=== PATIENT | female | born 2000 | race African-American/Black ===

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

== ENCOUNTER 2020-01-19 12:22 | Emergency (ER) | payer OTHER, SELFPAY ==
[2020-01-19 12:28] VITALS: BP 136/77; PULSE 116; RESP 12; TEMP 37; O2SAT 100
--- NOTE | 2020-01-19 12:38 | ED.FEMALEGU ---
HPI - Female Genitourinary General Chief complaint: DERRICK HELPER Stated complaint: vaginal bleeding Time Seen by Provider: 01/19/20 12:42 Source: patient and RN notes reviewed Mode of arrival: ambulatory Limitations: no limitations History of Present Illness HPI Narrative: 19-year-old female presents with concern for vaginal spotting outside of her normal menstrual cycle. Reports her last period stopped on December 31, she began having spotting on January 10. She reports spotting is sporadic and mild. She does not take control, has never taken control. She denies cramping, abdominal pain, fever, abnormal vaginal discharge, concern for STDs, dysuria, frequency, urgency, flank pain, heavy bleeding. Reports she has never had a Pap smear, has never seen a bell clerk, however has an appointment in mid January with a bell clerk. MD elicited complaint: vaginal bleeding Related Data Allergies Allergy/AdvReac Type Severity Reaction Status Date / Time No Known Allergies Allergy Verified 12/02/19 22:29 Review of Systems Review of Systems: Narrative: CONSTITUTIONAL: Denies malaise, chills, sweats, or fever. CARDIOVASCULAR: Denies chest pain, palpitations, or edema. RESPIRATORY: Denies cough or dyspnea. GASTROINTESTINAL: Denies abdominal pain, nausea, vomiting, diarrhea, bloody, or mucous stools. GENITOURINARY: Denies dysuria or hematuria. Reports vaginal spotting SKIN: Denies rash or itching. MUSCULOSKELETAL: Denies myalgia. NEUROLOGIC: Denies numbness, weakness, or headache. PSYCHIATRIC: Denies anxiety or depression. Reports increased stress All systems reviewed & are unremarkable except as noted in HPI and below PMFSH Past Medical History Medical History (Updated 01/19/20 @ 12:58 by Ana Arce NP) Patient denies significant medical history Social History Social History (Updated 12/02/19 @ 22:34 by Wero Rapp DO) Smoking status: Never smoker Comments At time of signature, agree with nursing past medical, surgical, social and family history. There is no relevant family history pertinent to the presenting complaint Exam Narrative: Exam Narrative: GENERAL: Well-appearing, well-nourished, and in no acute distress. HEAD: Normocephalic. EYES: PERRLA, conjunctivae clear. NECK: Supple. No lymphadenopathy CHEST: Clear to auscultation. No respiratory distress. HEART: Regular rate and rhythm. No murmur heard. Normal peripheral pulses. ABDOMEN: Soft, nontender upon palpation, nondistended, normal active bowel sounds, no palpable or pulsatile masses, no guarding. No CVA tenderness SKIN: Warm, dry, no rash. NEURO: Alert and oriented x3. PSYCH: Normal mood and affect Patient refused pelvic exam Course Course Emergency Course: Patient refused pelvic exam. Patient is aware of diagnosis, understands and agrees to treatment plan. Anticipatory guidance given. Patient agrees to follow-up as directed and is aware of reasons to seek care at the emergency department. Portions of this record may have been created with voice recognition software Vital Signs Vital signs: Vital Signs Temperature 98.6 F 01/19/20 12:28 Pulse Rate 116 H 01/19/20 12:28 Respiratory Rate 12 01/19/20 12:28 Blood Pressure 136/77 01/19/20 12:28 Pulse Oximetry 100 01/19/20 12:28 Temperature 98.6 F 01/19/20 12:28 Pulse Rate 116 H 01/19/20 12:28 Respiratory Rate 12 01/19/20 12:28 Blood Pressure 136/77 01/19/20 12:28 Pulse Oximetry 100 01/19/20 12:28 Reviewed. MDM - Female Genitourinary MDM Narrative Medical decision making narrative: Exam findings and UA show no acute concerns or changes; patient is non-toxic appearing and is in no distress. Patient is appropriate for outpatient treatment and follow-up. Differential Diagnosis Differential diagnosis: Likely vaginitis and dysmenorrhea Lab Data Labs: UCG Bedside Result Negative Reference Range: Negative Urine Glucose Neg
== END 2020-01-19 13:03 | disposition home or self-care (01) ==
PROVIDERS: Emergency Provider Nurse Practitioner
DX: N94.6 Dysmenorrhea, unspecified (principal)
CPT/HCPCS: 81003; 81025; 99213; G0463

== ENCOUNTER 2020-03-10 17:25 | Emergency (ER) | payer OTHER, SELFPAY ==
[2020-03-10 17:34] VITALS: BP 122/70; PULSE 89; RESP 16; TEMP 36.8; O2SAT 100
--- NOTE | 2020-03-10 17:44 | ED.FEMALEGU ---
HPI - Female Genitourinary General Chief complaint: Urogenital-Female Stated complaint: POS UTI Time Seen by Provider: 03/10/20 17:37 Source: patient and RN notes reviewed Mode of arrival: ambulatory Limitations: no limitations History of Present Illness HPI Narrative: Patient presents today with a 4-day history of hematuria, urinary frequency with dysuria that started today. Denies abdominal pain, back pain, fever, nausea, vomiting. Patient started some leftover antibiotics a few days ago without relief. MD elicited complaint: dysuria Related Data Allergies Allergy/AdvReac Type Severity Reaction Status Date / Time No Known Allergies Allergy Verified 03/10/20 17:31 Review of Systems Review of Systems: Narrative: CONSTITUTIONAL: Denies body aches, fever, chills, or sweats. EYES: Denies visual changes, redness, or discharge. ENT: Denies rhinorrhea, congestion, sore throat, or otalgia. CARDIOVASCULAR: Denies chest pain, palpitations, or edema. RESPIRATORY: Denies cough or dyspnea. GASTROINTESTINAL: Denies abdominal pain, nausea, vomiting, or diarrhea. GENITOURINARY: + Dysuria, hematuria, frequency SKIN: Denies rash, itching, or wounds. MUSCULOSKELETAL: Denies back pain, joint pain, or myalgia. NEUROLOGIC: Denies headache, numbness, tingling, or weakness. PSYCH: Denies depression or anxiety. [facility] Past Medical History Medical History (Updated 03/11/20 @ 00:00 by Chirstelle Dadariel) Patient denies significant medical history Social History Social History (Updated 12/02/19 @ 22:34 by Wero Rapp DO) Smoking status: Never smoker Comments At time of signature, I have reviewed and agree with nursing past medical, surgical, social and family history unless otherwise noted. Please see nursing chart for further information. There is no relevant family history pertinent to the presenting complaint Exam Narrative: Exam Narrative: GENERAL: Well-appearing, well-nourished, and in no acute distress. HEAD: Normocephalic, atraumatic. EYES: EOMI. No redness or drainage. Conjunctivae normal. ENT: Mucous membranes pink and moist. NECK: Normal AROM. CHEST: No respiratory distress. Clear to auscultation. HEART: Regular rate and rhythm. No murmur appreciated. Normal peripheral pulses. ABDOMEN: Soft, nontender, nondistended, normal active bowel sounds.-CVAT MUSCULOSKELETAL: No bony tenderness. EXTREMITIES: Normal range of motion. No edema. SKIN: Warm, dry, no rash. Capillary refill normal. Normal skin turgor. NEURO: No focal deficits. Alert and oriented x3. Gait steady. PSYCH: Normal affect. No signs of depression or anxiety. Course Vital Signs Vital signs: Vital Signs Temperature 98.2 F 03/10/20 17:34 Pulse Rate 89 03/10/20 17:34 Respiratory Rate 16 03/10/20 17:34 Blood Pressure 122/70 03/10/20 17:34 Pulse Oximetry 100 03/10/20 17:34 Temperature 98.2 F 03/10/20 17:34 Pulse Rate 89 03/10/20 17:34 Respiratory Rate 16 03/10/20 17:34 Blood Pressure 122/70 03/10/20 17:34 Pulse Oximetry 100 03/10/20 17:34 Reviewed. Pt has been instructed to follow up with her PCP regarding her elevated blood pressure today. MDM - Female Genitourinary Differential Diagnosis Differential diagnosis: Likely urinary tract infection, vaginitis, cystitis and other (Hematuria) Lab Data Attestation: I reviewed the patient's lab results. Labs: Urine Glucose Negative Reference Range: Negative Urine Bilirubin 1+ Reference Range: Negative Urine Ketone 3+ Reference Range: Negative Urine Specific Sylva 1.025 Reference Range:1.001-1.035 Urine Blood 3+
== END 2020-03-10 17:49 | disposition home or self-care (01) ==
PROVIDERS: Emergency Provider Nurse Practitioner
DX: N39.0 Urinary tract infection, site not specified (principal)
CPT/HCPCS: 81003; 87086; 87088; 99213; G0463

== ENCOUNTER 2020-09-14 12:47 | Emergency (ER) | payer OTHER, SELFPAY ==
[2020-09-14 12:58] VITALS: BP 134/81; PULSE 85; RESP 16; TEMP 36.6; O2SAT 100
[2020-09-14 12:59] VITALS: BP 134/81; PULSE 85; RESP 16; TEMP 36.6; O2SAT 100
--- NOTE | 2020-09-14 13:17 | ED.FEMALEGU ---
HPI - Female Genitourinary General Chief complaint: Urogenital-Female Stated complaint: POS UTI Time Seen by Provider: 09/14/20 13:11 Source: patient and RN notes reviewed Mode of arrival: ambulatory Limitations: no limitations History of Present Illness HPI Narrative: Patient presents today complaining of cloudy urine, frequency, urgency, blood on the toilet paper, and one episode of urinary incontinence since yesterday. Denies dysuria, abdominal pain, back pain, fever. She has not tried any [id number] treatment prior to arrival. MD elicited complaint: UTI Related Data Home Medications Medication Instructions Recorded Confirmed [id number] phos tablet PO 09/14/20 [Cranberry-Probiotic] Allergies Allergy/AdvReac Type Severity Reaction Status Date / Time No Known Allergies Allergy Verified 09/14/20 12:58 Review of Systems Review of Systems: Narrative: CONSTITUTIONAL: Denies body aches, fever, chills, or sweats. EYES: Denies visual changes, redness, or discharge. ENT: Denies rhinorrhea, congestion, sore throat, or otalgia. CARDIOVASCULAR: Denies chest pain, palpitations, or edema. RESPIRATORY: Denies cough or dyspnea. GASTROINTESTINAL: Denies abdominal pain, nausea, vomiting, or diarrhea. GENITOURINARY: Denies dysuria. + Frequency, urgency, incontinence, cloudiness SKIN: Denies rash, itching, or wounds. MUSCULOSKELETAL: Denies back pain, joint pain, or myalgia. NEUROLOGIC: Denies headache, numbness, tingling, or weakness. PSYCH: Denies depression or anxiety. [facility] Past Medical History Medical History Patient denies significant medical history Social History Social History Smoking status: Never smoker Comments At time of signature, I have reviewed and agree with nursing past medical, surgical, social and family history unless otherwise noted. Please see nursing chart for further information. There is no relevant family history pertinent to the presenting complaint Exam Narrative: Exam Narrative: GENERAL: Well-appearing, well-nourished, and in no acute distress. HEAD: Normocephalic, atraumatic. EYES: EOMI. No redness or drainage. Conjunctivae normal. ENT: Mucous membranes pink and moist. NECK: Normal AROM. Supple. No lymphadenopathy. CHEST: No respiratory distress. Clear to auscultation. HEART: Regular rate and rhythm. No murmur appreciated. Normal peripheral pulses. ABDOMEN: Soft, nontender, nondistended, normal active bowel sounds. -CVAT MUSCULOSKELETAL: No bony tenderness. EXTREMITIES: Normal range of motion. No edema. SKIN: Warm, dry, no rash. Capillary refill normal. Normal skin turgor. NEURO: No focal deficits. Alert and oriented x3. Gait steady. PSYCH: Normal affect. No signs of depression or anxiety. Course Vital Signs Vital signs: Vital Signs Temperature 97.9 F 09/14/20 12:58 Pulse Rate 85 09/14/20 12:58 Respiratory Rate 16 09/14/20 12:58 Blood Pressure 134/81 09/14/20 12:58 Pulse Oximetry 100 09/14/20 12:58 Temperature 97.9 F 09/14/20 12:59 Pulse Rate 85 09/14/20 12:59 Respiratory Rate 16 09/14/20 12:59 Blood Pressure 134/81 09/14/20 12:59 Pulse Oximetry 100 09/14/20 12:59 Reviewed. Pt has been instructed to follow up with her PCP regarding her elevated blood pressure today. MDM - Female Genitourinary Differential Diagnosis Differential diagnosis: Likely urinary tract infection, cystitis and other (Pyelonephritis, interstitial cystitis, vulvovaginitis) Lab Data Attestation: I reviewed the patient's lab results. Labs: Urine Glucose Negative Reference Range: Negative Urine Bilirubin 1+ Reference Range: Negative Urine Ketone 4+
== END 2020-09-14 13:24 | disposition home or self-care (01) ==
PROVIDERS: Emergency Provider Nurse Practitioner
DX: N30.01 Acute cystitis with hematuria (principal)
CPT/HCPCS: 81003; 87077; 87086; 87088; 87186; 99213; G0463

== ENCOUNTER 2020-10-22 09:18 | Emergency (ER) | payer OTHER, SELFPAY ==
--- NOTE | ~2020-10-22 | CT_ITS ---
EXAMINATION: CT abdomen pelvis w con DATE: 10/22/2020 11:29 INDICATION: Low abdominal pain. Vomiting. TECHNIQUE: Computed tomography (CT) of the abdomen and pelvis was performed with 100 mL Omnipaque 350 intravenous contrast. Automated exposure control and iterative reconstruction technique were employe d. The dose-length product was 274.55 mGy-cm. COMPARISON: CT abdomen and pelvis 12/03/2019 FINDINGS: The visualized portions of the lung bases are clear without pneumonia or pleural effusion. The heart size is normal. No pericardial effusion. The liver, gallbladder, spleen, pancreas, adrenal glands, and kidneys are normal. There are no dilated loops of bowel. The appendix is normal. There is trace pelvic ascites. There are no pathologically enlarged lymph nodes. The bones are unremarkable. IMPRESSION: 1. No etiology for the patient's symptoms. Reviewed, dictated and finalized at location B.
[2020-10-22 09:26] VITALS: BP 119/79; PULSE 85; RESP 14; O2SAT 100
--- NOTE | 2020-10-22 09:30 | PC.NURSE ---
Patient declines IV at this time, patient reports that she has a fear of needles and requests to not have an IV at this time.
--- NOTE | 2020-10-22 09:54 | PC.NURSE ---
pt denied blood draw at 09:50
[2020-10-22 09:57] LABS: Add Urine Microscopic? YES; Appearance Urine Cloudy (Clear); Bacteria Urine Trace /hpf; Bilirubin Urine Negative (Negative); Blood Urine Negative (Negative); Glucose Urine UA Negative (Negative); Ketones Urine 2+ mg/dL (Negative); Leukocyte Esterase Ur 1+ LEU/UL (Negative); Mucus Urine Heavy /lpf; Nitrate Urine Negative (Negative); Protein Urine 2+ mg/dL (Negative); Squamous Epithelial Cell Urine Many /hpf (Few)
[2020-10-22 10:00] LABS: Color Urine Yellow (Yellow)
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
[2020-10-22 10:31] LABS: Basophils Percent Auto 0.7 % (0.2-1.2); Eosinophils Percent Auto 0.7 % (0-4.4); Hematocrit 38.7 % (37.0-47.0); Hemoglobin 12.1 g/dL (12.0-15.0); Immature Granulocyte Absolute 0.01 K/mm3 (0.00-0.031); Immature Granulocyte Percent A 0.2 % (0-0.5); Lymphocytes Absolute Auto 0.88 K/mm3 (0.9-3.2); Lymphocytes Percent Auto 19.5 % (18.3-44.2); Mean Corpuscular HGB Conc 31.3 g/dl (32-36); Mean Corpuscular Hemoglobin 27.4 pg (26-34); Mean Corpuscular Volume 87.6 fl (80-100); Mean Platelet Volume 10.3 fl (7.4-10.4); Monocytes Absolute Auto 0.5 K/mm3 (0.1-0.6); Neutrophils Absolute Auto 3.1 K/mm3 (1.3-6.7); Neutrophils Percent Auto 68.9 % (45.5-73.1); Platelet Count Result 237 k/mm3 (150-375); Red Blood Count 4.42 M/mm3 (4.2-5.4); Red Cell Distribution Width 12.1 % (11.5-14.5); White Blood Count 4.5 K/mm3 (4.5-10.0)
[2020-10-22] MEDS: ONDANSETRON INJ 4 MG/2 ML VIAL IV PUSH (10:44)
[2020-10-22] MEDS: SODIUM CHLORIDE 0.9% IV 1,000 ML 999 ML IV CONT ×2 (10:44→11:51)
[2020-10-22 11:15] LABS: Alanine Aminotransferase 10 U/L (4-35); Albumin Level 4.8 g/dL (3.5-5.1); Alkaline Phosphatase 65 U/L (38-126); Anion Gap 13 mmol/L (8-16); Aspartate Amino Transferase 26 U/L (14-36); Bilirubin,Total 0.6 mg/dL (0.2-1.3); Blood Urea Nitrogen 11 mg/dL (7-17); Calcium 9.4 mg/dL (8.4-10.2); Carbon Dioxide 23 mmol/L (22-30); Chloride 106 mmol/L (98-107); Estimated CRCL calculation 111 ml/min; Estimated Glomerular Filt Rate > 60; Glucose 91 mg/dL (65-105); Lipase 44 U/L (23-300); Potassium 3.6 mmol/L (3.4-5.0); Sodium 142 mmol/L (137-145)
[2020-10-22 11:22] LABS: Estimated CRCL calculation 111 ml/min; Estimated Glomerular Filt Rate > 60
[2020-10-22 11:53] VITALS: BP 128/78; PULSE 85; RESP 16; O2SAT 100
[2020-10-22 12:42] VITALS: BP 130/75; PULSE 82; RESP 16; O2SAT 100
== END 2020-10-22 12:47 | disposition home or self-care (01) ==
PROVIDERS: Emergency Provider Emergency Medicine
DX: N30.00 Acute cystitis without hematuria (principal)
CPT/HCPCS: 36415; 74177; 80053; 81001; 81025; 83690; 85025; 87086; 96361; 96365; 96375; 99284; J0696; J2405; J7030; Q9967

== ENCOUNTER → 2021-03-21 20:39 | Emergency (ER) | payer OTHER, SELFPAY ==
--- NOTE | ~2021-03-21 | XR_ITS ---
XR chest 2V DATE: 03/21/2021 20:56 INDICATION: Chest pain, chest pressure, shortness of breath. Smoker. TECHNIQUE: PA and lateral views COMPARISON: None FINDINGS: Normal heart size. No hilar or mediastinal enlargement. The lungs are clear. No pleural eff usion or pulmonary vascular congestion or pneumothorax. Included skeletal structures appear normal. IMPRESSION: Negative Reviewed, dictated and finalized at location A. IMPRESSION: Negative
[2021-03-21 20:41] VITALS: BP 131/85; PULSE 95; RESP 18; TEMP 37; O2SAT 100
--- NOTE | 2021-03-21 20:41 | ECG_ITS ---
Measurements Intervals [place] Rate: 99 P: 76 NH: 140 QRS: 65 QRSD: 86 T: -15 QT: 340 QTc: 436 Interpretive Statements SINUS RHYTHM NONSPECIFIC T-WAVE ABNORMALITY- ANT/INF LEADS BASELINE ARTIFACT- I, II, III, AVR, AVL, V1 BORDERLINE ECG Electronically Signed On 03-22-2021 9:29:49 CDT by Cale Dick D.O.
[2021-03-21 21:09] LABS: Basophils Percent Auto 0.8 % (0.2-1.2); Eosinophils Absolute Auto 0.1 K/mm3 (0-0.3); Eosinophils Percent Auto 1.8 % (0-4.4); Hematocrit 39.9 % (37.0-47.0); Hemoglobin 12.5 g/dL (12.0-15.0); Lymphocytes Absolute Auto 2.49 K/mm3 (0.9-3.2); Lymphocytes Percent Auto 48.5 % (18.3-44.2); Mean Corpuscular HGB Conc 31.3 g/dl (32-36); Mean Corpuscular Hemoglobin 28.5 pg (26-34); Mean Corpuscular Volume 91.1 fl (80-100); Mean Platelet Volume 10.9 fl (7.4-10.4); Monocytes Absolute Auto 0.6 K/mm3 (0.1-0.6); Monocytes Percent Auto 12.1 % (2.6-8.5); Neutrophils Absolute Auto 1.9 K/mm3 (1.3-6.7); Neutrophils Percent Auto 36.8 % (45.5-73.1); Platelet Count Result 204 k/mm3 (150-375); Red Blood Count 4.38 M/mm3 (4.2-5.4); White Blood Count 5.1 K/mm3 (4.5-10.0)
[2021-03-21 21:15] VITALS: BP 107/80; PULSE 87; RESP 18; O2SAT 100
[2021-03-21 21:17] VITALS: PULSE 84
[2021-03-21 21:20] LABS: INR 1.1; Prothrombin Time 13.9 Seconds (11.1-14.7)
[2021-03-21 21:21] LABS: Partial Thromboplastin Time 27.3 SECONDS (22.3-36.8)
--- NOTE | 2021-03-21 21:21 | PC.NURSE ---
No need for aspirin at this time, discussed with Dr Kat. Order cancelled.
[2021-03-21 21:28] LABS: Anion Gap 14 mmol/L (8-16); Blood Urea Nitrogen 11 mg/dL (7-17); Calcium 9.3 mg/dL (8.4-10.2); Carbon Dioxide 23 mmol/L (22-30); Chloride 104 mmol/L (98-107); Estimated CRCL calculation 107 ml/min; Estimated Glomerular Filt Rate > 60; Glucose 95 mg/dL (65-110); Potassium 3.5 mmol/L (3.4-5.0); Sodium 141 mmol/L (137-145)
[2021-03-21 21:32] VITALS: BP 98/76; PULSE 95; RESP 18; O2SAT 100
[2021-03-21 21:40] LABS: Troponin I < 0.012 ng/mL (0.000-0.034)
[2021-03-21] MEDS: BELLADONNA ALK/PHENOB ELIX 10 ML, MAG HYDROX/ALUMINUM HYD/SIMETH 30 ML, LIDOCAINE HCL 2... PO (21:43)
[2021-03-21 21:47] VITALS: PULSE 88; RESP 19; O2SAT 100
[2021-03-21 21:50] VITALS: PULSE 95; O2SAT 100
--- NOTE | 2021-03-21 21:50 | ED.GENADULT ---
HPI - General Adult General Chief complaint: Chest Pain Stated complaint: smoked mj, not feeling well Time Seen by Provider: 03/21/21 21:09 History of Present Illness HPI narrative: Patient 21-year-old female presents the emergency department with chief complaint of chest disc. The patient reports that she started having a reflux type sensation had some burning in her chest. Patient states that subsequently has improved now the patient reports no prior history of cardiac disease reports no shortness of breath denies any risk factors for thromboembolic event and reports symptoms have resolved at this point. Related Data Allergies Allergy/AdvReac Type Severity Reaction Status Date / Time No Known Allergies Allergy Verified 03/21/21 21:17 Review of Systems Review of Systems: A 10 system review of systems was completed on the patient and is negative except for what is stated in the HPI. Nursing and ancillary documentation was reviewed. PMFSH Past Medical History Medical History Patient denies significant medical history Social History Social History Smoking status: Never smoker Exam Narrative: GENERAL: Well-appearing, well-nourished, and in no acute distress. HEAD: Normocephalic, atraumatic. EYES: PERRLA and EOMI. ENT: Nares clear, no rhinorrhea or epistaxis. Mucous membranes moist. NECK: Supple. CHEST: Clear to auscultation. No respiratory distress. HEART: Regular rate and rhythm. No murmur heard. Normal peripheral pulses. ABDOMEN: Soft, nontender, nondistended, normal active bowel sounds. EXTREMITIES: Normal range of motion. No edema. SKIN: Warm, dry, no rash. NEURO: No focal deficits. Alert and oriented x3. PSYCH: Normal mood and affect. Course Course Emergency Course: EKG shows sinus rhythm rate [address] elevation or ST depression noted Vital Signs Vital signs: Vital Signs Temperature 37.0 C 03/21/21 20:41 Pulse Rate 95 03/21/21 20:41 Respiratory Rate 18 03/21/21 20:41 Blood Pressure 131/85 03/21/21 20:41 Pulse Oximetry 100 03/21/21 20:41 Temperature 37.0 C 03/21/21 20:41 Pulse Rate 88 03/21/21 21:47 Respiratory Rate 19 03/21/21 21:47 Blood Pressure 98/76 L 03/21/21 21:32 Pulse Oximetry 100 03/21/21 21:47 Medical Decision Making Vital Signs Vital Signs: Vital Signs Temperature 37.0 C 03/21/21 20:41 Pulse Rate 95 03/21/21 20:41 Respiratory Rate 18 03/21/21 20:41 Blood Pressure 131/85 03/21/21 20:41 Pulse Oximetry 100 03/21/21 20:41 Temperature 37.0 C 03/21/21 20:41 Pulse Rate 88 03/21/21 21:47 Respiratory Rate 19 03/21/21 21:47 Blood Pressure 98/76 L 03/21/21 21:32 Pulse Oximetry 100 03/21/21 21:47 Lab Data Result diagrams: 03/21/21 21:01 03/21/21 21:01 Labs: Lab Results 03/21/21 03/21/21 03/21/21 Range/Units 21:01 21:01 21:01 WBC 5.1 (4.5-10.0) K/mm3 RBC 4.38 (4.2-5.4) M/mm3 Hgb 12.5 (12.0-15.0) g/dL Hct 39.9 (37.0-47.0) % MCV 91.1 (80-100) fl MCH 28.5 (26-34) pg MCHC 31.3 L (32-36) g/dl RDW 12.0 (11.5-14.5) % Plt Count 204 (150-375) k/mm3 MPV 10.9 H (7.4-10.4) fl Immature Gran % (Auto) 0.0 (0-0.5) % Neut % (Auto) 36.8 L (45.5-73.1) % Lymph % (Auto) 48.5 H (18.3-44.2) % [place] % (Auto) 12.1 H (2.6-8.5) % Eos % (Auto) 1.8 (0-4.4) % Baso % (Auto) 0.8 (0.2-1.2) % Lymph # (Auto) 2.49 (0.9-3.2) K/mm3 [place] # (Auto) 0.6 (0.1-0.6) K/mm3 Eos # (Auto) 0.1 (0-0.3) K/mm3 Baso # (Auto) 0.0 (0.0-0.1) K/mm3 Abs Immat Gran (auto) 0.00 (0.00-0.031) K/mm3 Absolute Neuts (auto) 1.9 (1.3-6.7) K/mm3 Absolute Nucleated RBC 0.0 (0.0-0.012) K/mm3 Nucleated RBC % 0.0 (0.0-0.2) % PT 13.9 (11.1-14.7) Seconds INR 1.1 APTT 27.3 (22.3-36.8) SECONDS
--- NOTE | 2021-03-21 22:13 | PC.NURSE ---
pt. walked out without notice and without discharge instructions
== END | disposition home or self-care (01) ==
PROVIDERS: Emergency Provider Emergency Medicine
DX: R07.89 Other chest pain (principal); K21.9 Gastro-esophageal reflux disease without esophagitis
CPT/HCPCS: 36415; 71046; 80048; 84484; 85025; 85610; 85730; 93005; 99284; A9270

== ENCOUNTER 2023-06-14 09:22 | Emergency (ER) | payer MEDICAID, SELFPAY ==
--- NOTE | ~2023-06-14 | US_ITS ---
Pelvic ultrasound. Clinical History: Left groin pain, torsion Technique: Realtime transabdominal and transvaginal scanning of the pelvis was performed. Color flow Doppler and Doppler spectral analysis were performed. Findings: The uterus is anteverted. The endometrial stripe has a thickness of 7 mm. No focal mass is identified. The right ovary measures 2.3 x 3.2 x 2.0 cm. No significant right ovarian or adnexal mass is seen. V ascular flow present in the right ovary and Doppler spectral analysis. The left ovary measures 8.0 x 6.9 cm. Left ovary is nearly completely occupied by 7.5 x 6.2 x 5.9 cm cyst, with homogeneous low-level internal echoes. There is vascular flow in the thin right ovary spla yed around the cyst on color Doppler imaging.. There is no evidence of free fluid in the cul de sac. Impression: No evidence for torsion. 7.5 cm left ovarian cystic lesion as detailed above, most compatible with endometrioma, versus possib ly acute hemorrhagic cyst. Reviewed, dictated and finalized at location . [employer] LAW ENFORCEMENT ANALYST Impression: No evidence for torsion. 7.5 cm left ovarian cystic lesion as detailed above, most compatible with endom etrioma, versus possibly acute hemorrhagic cyst.
[2023-06-14 09:31] VITALS: BP 143/77; PULSE 86; RESP 16; TEMP 36.7; O2SAT 100
--- NOTE | 2023-06-14 11:04 | ED.GENADULT ---
[facility] - General Adult General Chief complaint: Unspecified Stated complaint: L side pain Time Seen by Provider: 06/14/23 10:41 Source: patient Mode of arrival: ambulatory Limitations: no limitations History of Present Illness HPI narrative: This is a 23-year-old female who presents to the ED with chief complaint of lower abdominal/groin pain for the past several days. Reports she was seen initially Urgent Care diagnosed with UTI given Flagyl. She has been taking the medication as prescribed. She reports she has persisting pain in this area and some difficulty with urination including dysuria and frequency. Denies fevers, chills, flank pain, nausea, vomiting, diarrhea. Related Data Allergies Allergy/AdvReac Type Severity Reaction Status Date / Time No Known Allergies Allergy Verified 06/14/23 09:23 Review of Systems Review of Systems: All systems as dictated in [facility] [place] Past Medical History Medical History Patient denies significant medical history Social History Social History Smoking status: Never smoker Exam Narrative: GENERAL: Well-appearing, well-nourished, and in no acute distress. HEAD: Normocephalic, atraumatic. EYES: PERRLA and EOMI. ENT: Nares clear, no rhinorrhea or epistaxis. Mucous membranes moist. Oropharynx without tonsillar hypertrophy exudate or other lesions. NECK: Supple. No adenopathy or masses. CHEST: No respiratory distress. Clear to auscultation. No wheezes rales or rhonchi HEART: Regular rate and rhythm. No murmur heard. Normal peripheral pulses. ABDOMEN: Soft, nontender, nondistended, normal active bowel sounds. MSK: Normal range of motion. No edema. SKIN: Warm, dry, no rash. NEURO: Alert and oriented x3. No focal deficits. PSYCH: Normal mood and affect. Course Vital Signs Vital signs: Vital Signs Temperature 98.1 F 06/14/23 09:31 Pulse Rate 86 06/14/23 09:31 Respiratory Rate 16 06/14/23 09:31 Blood Pressure 143/77 H 06/14/23 09:31 Pulse Oximetry 100 06/14/23 09:31 Oxygen Delivery Room Air 06/14/23 09:31 Temperature 98 F 06/14/23 14:58 Pulse Rate 78 06/14/23 14:58 Respiratory Rate 16 06/14/23 14:58 Blood Pressure 102/78 06/14/23 14:58 Pulse Oximetry 100 06/14/23 14:58 Oxygen Delivery Room Air 06/14/23 09:31 Medical Decision Making MDM Narrative Medical decision making narrative: This is a 23-year-old female who presents to the ED with chief complaint of have left groin pain and your symptoms is obese. Vitals are. Afebrile. Exam shows no evidence of acute abdomen. Lab work reveals a normal white count and normal CMP. Urinalysis shows evidence of UTI and some dehydration as well. The urine was sent for STD swabs and is positive for chlamydia. Pelvic ultrasound: No evidence for torsion. 7.5 cm left ovarian cystic lesion as detailed above, most compatible with endometrioma, versus possibly acute hemorrhagic cyst. . Overall symptoms seem to be consistent with chlamydia. There may be an element of PID developing but she is not in acute distress at this point and has a normal white count with normal vital so she should be able to go home. 2 week course of doxycycline given. She already has metronidazole. She was also given Rocephin here in the ED. pain controlled with Tylenol and Toradol. OBGYN referral given. Pt will be discharged in stable condition. Return precautions given and supportive measures discussed. Pt is understanding and agreeable with plan for discharge and follow-up with PCP/OB Vital Signs Vital Signs: Vital Signs Temperature 98.1 F 06/14/23 09:31 Pulse Rate 86 06/14/23 09:31 Respiratory Rate 16 06/14/23 09:31 Blood Pressure 143/77 H 06/14/23 09:31 Pulse Oximetry 100 06/14/23 09:31 Oxygen Delivery Room Air 06/14/23 09:31 Temperature 98 F 06/14/23
[2023-06-14 11:15] LABS: Hematocrit 42.2 % (37.0-47.0); Hemoglobin 12.7 g/dL (12.0-15.0); Mean Corpuscular HGB Conc 30.1 g/dl (32-36); Mean Corpuscular Hemoglobin 27.9 pg (26-34); Mean Corpuscular Volume 92.5 fl (80-100); Mean Platelet Volume 10.9 fl (7.4-10.4); Platelet Count Result 201 k/mm3 (150-375); Red Blood Count 4.56 M/mm3 (4.2-5.4); Red Cell Distribution Width 12.8 % (11.5-14.5); White Blood Count 5.5 K/mm3 (4.5-10.0)
[2023-06-14] MEDS: SODIUM CHLORIDE 0.9% IV 1,000 ML 999 ML IV CONT (11:17)
[2023-06-14] MEDS: ONDANSETRON INJ 4 MG/2 ML VIAL IV PUSH (11:17)
[2023-06-14 11:30] LABS: Eosinophils Absolute Manual 0.11 K/mm3 (0.02-0.5); Eosinophils Percent Manual 2 % (0-4); Lymphocytes Absolute Manual 1.15 K/mm3 (1.1-4.5); Monocytes Absolute Manual 0.44 K/mm3 (0.1-0.90); Monocytes Percent Manual 8 % (3-9); Neutrophils Percent Manual 69 % (46-73); Platelet Estimate Adequate (Adequate); Schistocytes None Seen (NORMAL); Total Cells Counted 100
[2023-06-14 11:32] LABS: Alanine Aminotransferase 11 U/L (6-35); Albumin Level 4.9 g/dL (3.5-5.1); Alkaline Phosphatase 59 U/L (38-126); Anion Gap 11 mmol/L (8-16); Aspartate Amino Transferase 22 U/L (14-36); Bilirubin,Total 0.6 mg/dL (0.2-1.3); Blood Urea Nitrogen 11 mg/dL (7-17); CRP < 0.5 mg/dL (<1.0); Calcium 9.3 mg/dL (8.4-10.2); Carbon Dioxide 27 mmol/L (22-30); Chloride 103 mmol/L (98-107); Estimated CRCL calculation 104 ml/min; Estimated Glomerular Filt Rate > 60; Glucose 89 mg/dL (65-110); Potassium 3.6 mmol/L (3.4-5.0); Sodium 141 mmol/L (137-145)
[2023-06-14 12:07] LABS: Appearance Urine Clear (Clear); Bacteria Urine None Seen /hpf; Bilirubin Urine 1+ (Negative); Color Urine Dark Yellow (Yellow); Glucose Urine UA Negative (Negative); Ketones Urine 4+ mg/dL (Negative); Leukocyte Esterase Ur 2+ LEU/UL (Negative); Mucus Urine Present /lpf; Nitrate Urine Positive (Negative); Non Pathogenic Casts 0-2; Protein Urine 1+ mg/dL (Negative); RBC Urine 0-2 /hpf (0-2); Specific Grav Ur 1.036 (1.001-1.035); Squamous Epithelial Cell Urine Few /hpf (Few); pH Urine 5.5 (5.0-9.0)
[2023-06-14 12:08] LABS: Add Urine Microscopic? YES
[2023-06-14 12:54] LABS: Chlamydia trachomatis DETECTED (NOT DETECTE); Neisseria gonorrhoeae PCR NOT DETECTED (NOT DETECTE)
[2023-06-14] MEDS: ACETAMINOPHEN 500 MG TABLET 1000 MG PO (13:05)
[2023-06-14] MEDS: KETOROLAC 15 MG/ML VIAL (*BKC) IV PUSH (13:05)
[2023-06-14] MEDS: DOXYCYCLINE 100 MG/NS 100 ML 100 MG/100 ML BAG IVPB (13:25)
[2023-06-14] MEDS: cefTRIAXone 1 GM VIAL 0.5 GM IM (14:07)
[2023-06-14] MEDS: LIDOCAINE HCL 1% LOCAL INJ 10 ML VIAL (14:08)
[2023-06-14 14:58] VITALS: BP 102/78; PULSE 78; RESP 16; TEMP 36.6; O2SAT 100
== END 2023-06-14 14:59 | disposition home or self-care (01) ==
PROVIDERS: Emergency Provider Physician Assistant
DX: A74.9 Chlamydial infection, unspecified (principal); N83.202 Unspecified ovarian cyst, left side
CPT/HCPCS: 36415; 76830; 76856; 80053; 81001; 81025; 85025; 86140; 87086; 87088; 87147; 87491; 87591; 96361; 96365; 96372; 96375; 99284; A9270; J0696; J1885; J2405; J7030

== ENCOUNTER 2023-06-15 10:05 | Emergency (ER) | payer MEDICAID, SELFPAY ==
[2023-06-15] VITALS (9 sets, daily range): BP systolic 108–148; BP diastolic 73–92; PULSE 76–92; RESP 18; TEMP 36.4–36.8; O2SAT 99–100
--- NOTE | ~2023-06-15 | US_ITS ---
EXAMINATION: US pelvic complete DATE: 06/15/2023 13:12 INDICATION: Left ovarian cyst and left lower quadrant abdominal pain. TECHNIQUE: Multiple transabdominal and endovaginal sonographic images of the pelvis were obtained. COMPARISON: 06/14/2023 FINDINGS: The uterus measures 5.9 x 3.4 x 4.0 cm. The endometrial complex measures 6-7 mm in thickness. The ri ght ovary measures 3.8 x 2.8 x 1.6 cm. The left ovary measures 7.2 x 5.9 x 5.9 cm. Again seen is a hy poechoic complex cystic lesion measuring 6.3 x 5.2 x 5.5 cm in the left ovary. Vascular flow is ident ified in both ovaries on color Doppler. Does include some vascular flow along the internal septation within the cystic left ovarian lesion. There is a small amount of free fluid in the pelvis. IMPRESSION: 1. 6.3 cm complex cystic lesion in the left ovary. Differential would include hemorrhagic cyst or end ometrioma although the presence of vascular flow along the thin internal septation raises concern for ovarian neoplasm which could be either benign or malignant but argues against torsion. Reviewed, dictated and finalized at location A. EMS PROJECT MANAGER IMPRESSION: 1. 6.3 cm complex cystic lesion in the left ovary. Differential would include h emorrhagic cyst or endometrioma although the presence of vascular flow along th e thin internal septation raises concern for ovarian neoplasm which could be ei ther benign or malignant but argues against torsion.
--- NOTE | 2023-06-15 10:12 | ED.NAVMDI ---
HPI - Nausea/Vomiting/Diarrhea General Chief complaint: Nausea/Vomiting/Diarrhea Stated complaint: nauseated Time Seen by Provider: 06/15/23 10:11 Source: patient Mode of arrival: ambulatory Limitations: no limitations History of Present Illness HPI Narrative: Donita is a 23 year old female patient presenting to the clinic today with complaints of left lower pelvic pain, nausea, and vomiting. She reports she has been vomiting since about 2:00 a.m. this morning. Is unable to keep anything down. Denies any fever or chills. Was seen here yesterday and diagnosed with a left ovarian cyst. She has also been treated for STIs. Is currently taking doxycycline for chlamydia and was given Rocephin already for gonorrhea. Related Data Allergies Allergy/AdvReac Type Severity Reaction Status Date / Time No Known Allergies Allergy Verified 06/14/23 09:23 Review of Systems Review of Systems: Pertinent positives per HPI. Patient denies any fever, chills, rash, headache, visual changes, dizziness, cough, shortness of breath, chest pain, palpitations, nausea, vomiting, diarrhea, constipation,or any urinary issues. PMF Past Medical History Medical History Patient denies significant medical history Social History Social History Smoking status: Never smoker Comments At the time of my signature, I reviewed and agree with the nursing past medical, surgical, social, and family history. There is no relevant family history pertinent to the patient complaint. Exam Narrative: General: Well-developed, well nourished, in no apparent distress. Head: Normocephalic, atraumatic. Cardio: Regular rate and rhythm, s1 and s2 normal, no murmur appreciated. Resp: Clear to auscultation bilaterally, no rhonchi, rales, wheezing or rubs. Abdomen: Soft, pliable, bowel sounds present in all quadrants, tender to palpation over the left adnexa, no organomegly, no CVAT tenderness. : Deferred-denies any vaginal discharge-last menstrual period finished yesterday Course Course Emergency Course: Portions of this record may have been created with voice recognition software. Vital Signs Vital signs: Vital Signs Temperature 36.8 C 06/15/23 10:06 Pulse Rate 81 06/15/23 10:06 Respiratory Rate 18 06/15/23 10:06 Blood Pressure 148/92 H 06/15/23 10:06 Pulse Oximetry 100 06/15/23 10:06 Oxygen Delivery Room Air 06/15/23 10:06 Temperature 36.4 C 06/15/23 14:16 Pulse Rate 76 06/15/23 14:16 Respiratory Rate 18 06/15/23 11:56 Blood Pressure 114/77 06/15/23 14:16 Pulse Oximetry 100 06/15/23 14:16 Oxygen Delivery Room Air 06/15/23 10:06 Vital signs reviewed MDM - Nausea/Vomiting/Diarrhea MDM Narrative Medical decision making narrative: At the time of visit patient is resting comfortably on the exam table. Patient appears to be nontoxic. Labs: CBC shows white blood cell count of 7.3, H&H of 12.8 and 42.9, platelet count is 188, chemistry shows sodium of 137, potassium of 3.7, chloride 108, carbon dioxide of 17, BUN of 10 with a creatinine is 0.6, GFR is greater than 60, and normal LF TS, bedside test was negative. Diagnostics: Transvaginal ultrasound shows 6.3 cm complex cystic lesion in the left ovary. Differential would include hemorrhagic cyst or endometrioma although the presence of vascular flow along the thin internal septation raises concern for ovarian neoplasm which could be either benign or malignant but argues against torsion. Medications given: 1 L normal saline, 4 mg of morphine and 8 mg of Zofran IV push Plan: Ultrasound shows no sign ovarian torsion. Recommend follow-up with OBGYN as soon as possible. Prescription for promethazine and ibuprofen sent to the pharmacy. Continue current medications for chlamydia infection. Supportive measures were discussed with the
[2023-06-15 10:57] LABS: Basophils Percent Auto 0.3 % (0.2-1.2); Hematocrit 42.9 % (37.0-47.0); Hemoglobin 12.8 g/dL (12.0-15.0); Immature Granulocyte Absolute 0.02 K/mm3 (0.00-0.031); Immature Granulocyte Percent A 0.3 % (0-0.5); Lymphocytes Absolute Auto 0.57 K/mm3 (0.9-3.2); Lymphocytes Percent Auto 7.8 % (18.3-44.2); Mean Corpuscular HGB Conc 29.8 g/dl (32-36); Mean Corpuscular Volume 93.9 fl (80-100); Mean Platelet Volume 10.7 fl (7.4-10.4); Monocytes Absolute Auto 0.3 K/mm3 (0.1-0.6); Monocytes Percent Auto 3.4 % (2.6-8.5); Neutrophils Absolute Auto 6.5 K/mm3 (1.3-6.7); Neutrophils Percent Auto 88.2 % (45.5-73.1); Platelet Count Result 188 k/mm3 (150-375); Red Blood Count 4.57 M/mm3 (4.2-5.4); Red Cell Distribution Width 12.9 % (11.5-14.5); White Blood Count 7.3 K/mm3 (4.5-10.0)
[2023-06-15] MEDS: SODIUM CHLORIDE 0.9% IV 1,000 ML 999 ML IV CONT (11:05)
[2023-06-15] MEDS: ONDANSETRON INJ 4 MG/2 ML VIAL IV PUSH ×2 (11:05→11:53)
[2023-06-15 11:38] LABS: Alanine Aminotransferase 10 U/L (6-35); Albumin Level 4.2 g/dL (3.5-5.1); Alkaline Phosphatase 54 U/L (38-126); Anion Gap 12 mmol/L (8-16); Aspartate Amino Transferase 26 U/L (14-36); Bilirubin,Total 0.5 mg/dL (0.2-1.3); Blood Urea Nitrogen 10 mg/dL (7-17); Calcium 8.5 mg/dL (8.4-10.2); Carbon Dioxide 17 mmol/L (22-30); Chloride 108 mmol/L (98-107); Estimated CRCL calculation 104 ml/min; Estimated Glomerular Filt Rate > 60; Glucose 72 mg/dL (65-110); Potassium 3.7 mmol/L (3.4-5.0); Sodium 137 mmol/L (137-145)
[2023-06-15 11:38] LABS: Platelet Estimate Adequate (Adequate)
[2023-06-15 11:39] LABS: Hypochromasia 1+ (NORMAL); Schistocytes None Seen (NORMAL)
[2023-06-15] MEDS: MORPHINE SULFATE (*CRX) 4 MG/ML INJ IV PUSH (11:53)
--- NOTE | 2023-06-15 12:45 | PC.NURSE ---
Pt in US
== END 2023-06-15 14:32 | disposition home or self-care (01) ==
PROVIDERS: Emergency Provider Nurse Practitioner Family
DX: N83.202 Unspecified ovarian cyst, left side (principal); R11.2 Nausea with vomiting, unspecified
CPT/HCPCS: 36415; 76856; 80053; 81025; 85025; 96361; 96374; 96375; 96376; 99284; J2270; J2405; J7030